=== PATIENT | female | born 1940 | race Caucasian/White ===

== ENCOUNTER 2022-06-07 19:12 | Emergency (ER) | payer MEDICARE, BC ==
[~2022-06-07] VITALS: Ht 157.5 cm; Wt 70.5 kg
[2022-06-07 19:19] VITALS: TEMP 98.5
[2022-06-07] MEDS ORDERED: NEXIUM 40MG40 MG PO (20:53)
[2022-06-07] MEDS ORDERED: FERROUS SU325 MG/TAB PO (20:53)
[2022-06-07 20:54] LABS: BASO % 0.2 % (0.0-2.0); EOS % 0.1 % (0.0-4.0); GRAN # 7.5 K/mm3 (1.4-6.5); HEMATOCRIT 39.4 % (37.0-47.0); HEMOGLOBIN 13.2 g/dl (12.5-16.0); LYMPH # 1.1 K/mm3 (1.2-3.4); LYMPH % 12.2 % (20.0-51.0); MEAN CELL VOLUME 90 fl (80.0-100.0); MEAN CORPUSCULAR HEMOGLOBIN 30 pg (27-31); MEAN CORPUSCULAR HGB CONC 34 g/dl (33.0-37.0); MEAN PLATELET VOLUME 11.1 fl (7.4-10.4); MONO # 0.6 K/mm3 (0.1-0.6); MONO % 6.1 % (1.7-9.3); PLATELET COUNT 232 K/mm3 (130-400); RED BLOOD COUNT 4.39 M/mm3 (4.10-5.30); REDCELL DISTRIBUTION WIDTH-CV 12.8 % (11.5-14.5)
[2022-06-07] MEDS ORDERED: LASIX 40MG TABL40 MG PO (20:54)
[2022-06-07] MEDS ORDERED: NORVASC 5MG5 MG/TAB PO (20:54)
[2022-06-07] MEDS ORDERED: K-DUR20 MEQ PO (20:55)
[2022-06-07] MEDS ORDERED: LIPITOR 10MG10 MG PO (20:55)
[2022-06-07] MEDS ORDERED: ANORO IH (20:56)
[2022-06-07] MEDS ORDERED: ALDACTONE 25MG25 M1 PO (20:56)
[2022-06-07] MEDS ORDERED: ASPIRIN 81M81 MG/TA2 PO (20:57)
[2022-06-07] MEDS ORDERED: PROAIR HFA0.09 MG/AC IH (20:57)
[2022-06-07 21:10] LABS: ALBUMIN 3.5 gm/dL (3.4-4.8); BILIRUBIN,TOTAL 0.5 mg/dL (0.2-1.2); CALCIUM 8.8 mg/dL (8.4-10.2); CREATININE, serum 0.96 mg/dL (0.57-1.11); TOTAL PROTEIN 6.9 gm/dL (6.2-8.1)
[2022-06-07 21:29] LABS: COLLECTION METHOD CLEAN CATCH
[2022-06-07 21:33] LABS: URINE APPEARANCE Clear (CLEAR/HAZY); URINE COLOR Yellow (YELLOW)
[2022-06-07 21:35] LABS: PH 5.5 (5.0-8.5); URINE BLOOD TRACE-INTACT (NEGATIVE); URINE PROTEIN(semi-quant) 1+ (NEGATIVE)
[2022-06-07 21:36] LABS: URINE GLUCOSE Negative (NEGATIVE); URINE KETONE Negative (NEGATIVE); URINE NITRATE Negative (NEGATIVE); URINE UROBILINOGEN 0.2 E.U/dL (0.2-1.0)
[2022-06-07 21:42] LABS: MUCOUS Present (NOT PRESENT); SQUAMOUS EPITHELIAL None Seen /hpf (0-10); URINE BACTERIA None Seen /hpf (NONE SEEN); URINE RBC 0-2 /hpf (0-2)
[2022-06-07] MEDS ORDERED: ZOFRAN ODT4 MG PO (22:36)
[2022-06-08 00:09] VITALS: BP 129/60; PULSE 76
== END 2022-06-08 00:11 | disposition home or self-care (01) ==
LOC: COL.ER 19:12
PROVIDERS: Family Medicine; Nurse Practitioner Primary Care
DX: A08.11 Acute gastroenteropathy due to Norwalk agent (principal); E87.6 Hypokalemia; Z20.822 Contact with and (suspected) exposure to COVID-19
CPT/HCPCS: J7030; J7120